=== PATIENT | female | born 1985 | race Caucasian/White ===

== ENCOUNTER → 2024-02-06 11:10 | Outpatient (REF) | payer OTHER, SELFPAY | LOC: PNTC 11:10 | PROVIDERS: ATTENDING PHYSICIAN Nurse Practitioner Family | DX: Z34.91 Encounter for supervision of normal pregnancy, unspecified, first trimester (principal); O34.31 Maternal care for cervical incompetence, first trimester | CPT/HCPCS: 76801; 76817 ==

== ENCOUNTER 2024-02-09 06:29 | Day surgery (SDC) | payer OTHER, SELFPAY ==
[2024-02-09] VITALS (9 sets, daily range): BP systolic 102–130; BP diastolic 57–78; BMI 26.0
[2024-02-09 09:51] LABS: Hematocrit 37.3 % (37.0-47.0); Hemoglobin 13.2 g/dL (12.0-16.0)
[2024-02-09] MEDS: NORMOSOL-R 1000 IV (10:04)
[2024-02-09] MEDS: TYLENOL 1000 MG PO (10:04)
[2024-02-09] MEDS: VIBRAMYCIN 260 MG IV (10:05)
[2024-02-09] MEDS: HYPERRHO S-D 1500 UNIT IM (11:31)
[2024-02-09] MEDS: ROXICODONE 5 MG PO (12:24)
== END 2024-02-09 12:30 | disposition home or self-care (01) ==
LOC: SDS 06:29
PROVIDERS: ATTENDING PHYSICIAN Obstetrics & Gynecology
DX: O02.1 Missed abortion (principal)
CPT/HCPCS: 59820; 88305; 85014; 85018; 86850; 86900; 86901; J2790